=== PATIENT | male | born 1930 | race Caucasian/White ===

== ENCOUNTER 2016-11-07 08:05 | Day surgery (SDC) | payer MEDICARE ==
[~2016-11-07 08:05] MED LIST: ALLO100T PO; AMLO5 PO; ASPI81TA82 PO; ATOR80TA PO; BENGAY TOP; CARB1DRO EACH EYE; CLEAPOW6 PO; CYMB60CA PO; FLUN25I; GLIP5 PO; LIDO5T TD; LOSA50 PO; METF500 PO; OMEG1000; OMEP20TA PO; OXYC1SOL5 PO; PYRI100T4 PO; Pill Splitter OTHER; Remove Old Patch TD; VITA-13 PO; VITA100020 SL
[2016-11-07] MEDS ORDERED: POVIDONE IODINE 5% (ANTISEPSIS KIT) 4 APPLICATIONS EACH NARE SCH (09:00)
[2016-11-07] MEDS ORDERED: MUPIROCIN 2% OINT 1 APPLIC/GM SYR NASAL SCH (09:00)
[2016-11-07] MEDS ORDERED: CHLORHEXIDINE GLUCONATE 2 % 1 PACK (2 CLOTHS) TOPICAL SCH (09:00)
[2016-11-07] MEDS ORDERED: NS 1000 ML IV SCH (09:00)
[2016-11-07] MEDS ORDERED: VANCOMYCIN 1000 MG/NS 250 ML IV SCH ×2 (09:15)
[2016-11-07] MEDS ORDERED: MIDAZOLAM HCL 2 MG/2 ML VIAL ONE (10:26)
[2016-11-07] MEDS ORDERED: PROS5TAB PO (11:54)
[2016-11-07] MEDS ORDERED: ALLO100T PO (11:54)
[2016-11-07] MEDS ORDERED: VITATAB11 PO (11:54)
[2016-11-07] MEDS ORDERED: BRIM0.2S4 EACH EYE (11:54)
[2016-11-07] MEDS ORDERED: AMLO5TAB2 PO (11:54)
[2016-11-07] MEDS ORDERED: DULO1CAP3 PO (11:54)
[2016-11-07] MEDS ORDERED: ATOR1TAB18 PO (11:54)
[2016-11-07] MEDS ORDERED: ASPI81TA11 PO (11:54)
[2016-11-07] MEDS ORDERED: FLUN25I EACH NARE (11:55)
[2016-11-07] MEDS ORDERED: GLIP5TAB8 PO (11:55)
[2016-11-07] MEDS ORDERED: OMEP20TA PO (11:55)
[2016-11-07] MEDS ORDERED: LOSA50TA PO (11:55)
[2016-11-07] MEDS ORDERED: HYDR-3516 PO (11:55)
[2016-11-07] MEDS ORDERED: METF1000 PO (11:55)
--- NOTE | 2017-01-10 12:41 | MA ---
cc: JAKY RIVERA DATE 11/07/2016 DATE OF 1930 PROCEDURE PERFORMED Loop recorder insertion. PERFORMING PHYSICIAN Dr. Jaky Stoner PREPROCEDURE DIAGNOSIS Syncope POSTPROCEDURE DIAGNOSIS Successful loop recorder insertion. PROCEDURE PERFORMED 50 minutes of moderate IV sedation and two loop recorder insertion. DESCRIPTION OF PROCEDURE The patient was brought to the DOC unit in a fasting state. Consents were obtained. He was prepped and draped in a sterile fashion. Then 4 mg of versed and 75 mcg of Fentanyl was given for IV sedation. 1% Lidociade was use for local anaesthesia. Next, a [employer] LOOP recorder was inserted subcutaneously in the left chest. The patient tolerated the procedure well without any complications. Estimated blood loss 1 cc. The procedure was completed CONCLUSIONS Successful insertion of LOOP recorded. Jaky Rivera MD TEACHER ASSOCIATE/DJL /12:06 PM /12:29 PM NOEL
== END 2016-11-07 13:00 | disposition home or self-care (01) ==
LOC: HDOC 08:05 → HDIC 08:06 → HDOC 13:00
PROVIDERS: ATTEND Radiology Vascular & Interventional Radiology
DX: R55 Syncope and collapse (principal); I25.10 Atherosclerotic heart disease of native coronary artery without angina pectoris; I10 Essential (primary) hypertension; E78.5 Hyperlipidemia, unspecified; G47.33 Obstructive sleep apnea (adult) (pediatric); K21.9 Gastro-esophageal reflux disease without esophagitis
CPT/HCPCS: 33282; C1764; J2250; J3010; J3370; J7030; J7050